=== PATIENT | female | born 1945 | race Caucasian/White ===

== ENCOUNTER 2025-07-20 15:18 | Inpatient (IN) | payer MEDICAID ==
[2025-07-20] VITALS: BP 116/62; PULSE 66; RESP 20; TEMP 36.8; O2SAT 98
[~2025-07-20] VITALS: Ht 154.9 cm; Wt 49.0 kg
[2025-07-20 15:23] VITALS: O2SAT 99
[2025-07-20 16:08] LABS: BASOPHILS % 0.4 % (0.0-2.0); EOSINOPHILS % 1.2 % (0.0-5.0); HEMATOCRIT. 34.1 % (36.0-48.0); HEMOGLOBIN. 11.3 g/dL (12.0-16.0); LYMPHOCYTES % 20.7 % (20.0-50.0); MEAN PLATELET VOLUME 9.1 fl (7.4-10.4); MONOCYTES % 5.7 % (2.0-8.0); NEUTROPHILS % 72.0 % (40.0-76.0); PLATELET 310 x1000/uL (130-400); RED BLOOD CELL COUNT 4.19 mill/uL (4.2-5.4); RED CELL DISTRIBUTION WIDTH 14.1 % (11.6-14.6)
[2025-07-20 16:18] LABS: INR 1.0
[2025-07-20 16:22] LABS: CREATININE 0.7 mg/dL (0.6-1.0)
[2025-07-20 16:23] LABS: TROPONIN I HIGH SENSITIVITY < 4 ng/L (3.0-34); UREA NITROGEN BLOOD 17 mg/dL (9-23)
[2025-07-20 16:24] LABS: ASPARTATE AMINOTRANSFERASE 14 IU/L (<34)
[2025-07-20 16:25] LABS: BILIRUBIN DIRECT 0.2 mg/dL (<=3.0); BILIRUBIN TOTAL 0.6 mg/dL (0.1-1.0); PROTEIN TOTAL 7.0 g/dL (6.0-8.3)
[2025-07-20 20:00] VITALS: BP 157/59; PULSE 78; RESP 19; TEMP 35.7; TEMP 35.7508; O2SAT 99
[2025-07-20] MEDS ORDERED: ACETAMINOPHEN 325MG TABLET PO PRN (21:45)
[2025-07-20] MEDS ORDERED: DEXTROSE 50% WATER 50ML SYRINGE IV PRN (21:45)
[2025-07-20] MEDS ORDERED: ONDANSETRON HCL 4MG/2ML INJ IV PRN (21:45)
[2025-07-20] MEDS ORDERED: LOSA25TA26 PO (21:57)
[2025-07-20] MEDS ORDERED: ASPI-1406 PO (21:57)
[2025-07-20] MEDS ORDERED: ATOR10TA69 PO (21:57)
[2025-07-20] MEDS ORDERED: METF-415 PO (21:57)
[2025-07-20] MEDS: ATORVASTATIN CALCIUM 40MG TABLET PO SCH (23:06)
[2025-07-21] VITALS: BP 116/62; PULSE 66; RESP 20; TEMP 36.8; O2SAT 98
[2025-07-21 04:00] VITALS: BP 130/57; PULSE 70; RESP 20; TEMP 36.5; O2SAT 99
[2025-07-21] MEDS: BLOOD SUGAR DIAGNOSTIC STRIP TEST SCH (07:40)
[2025-07-21 08:04] LABS: BASOPHILS % 0.4 % (0.0-2.0); EOSINOPHILS % 2.6 % (0.0-5.0); HEMATOCRIT. 34.4 % (36.0-48.0); HEMOGLOBIN. 11.3 g/dL (12.0-16.0); LYMPHOCYTES % 43.3 % (20.0-50.0); MEAN PLATELET VOLUME 9.6 fl (7.4-10.4); MONOCYTES % 6.7 % (2.0-8.0); NEUTROPHILS % 47.0 % (40.0-76.0); PLATELET 304 x1000/uL (130-400); RED BLOOD CELL COUNT 4.19 mill/uL (4.2-5.4); RED CELL DISTRIBUTION WIDTH 14.3 % (11.6-14.6)
[2025-07-21 08:09] LABS: CREATININE 0.5 mg/dL (0.6-1.0); TRIGLYCERIDE 82 mg/dL (0-150); UREA NITROGEN BLOOD 11 mg/dL (9-23)
[2025-07-21 08:10] LABS: LDL CHOLESTEROL 59 mg/dL (5-100)
[2025-07-21] MEDS: INSULIN LISPRO 100 UNITS/ML SUBCUT SCH (08:10)
[2025-07-21 08:48] VITALS: BP 141/52; PULSE 72; RESP 20; TEMP 37; O2SAT 99
[2025-07-21] MEDS: ASPIRIN 81MG EC TABLET PO SCH (08:50)
[2025-07-21] MEDS: ENOXAPARIN 40MG/0.4ML SYR SUBCUT SCH (08:50)
[2025-07-21] MEDS: LOSARTAN 25 MG TABLET PO SCH (08:50)
[2025-07-21 12:00] VITALS: BP 134/45; PULSE 72; RESP 20; TEMP 37; O2SAT 99
[2025-07-21 15:21] LABS: CLARITY URINE CLEAR (CLEAR); GLUCOSE URINE 1+ (NEGATIVE); KETONES URINE NEGATIVE (NEGATIVE); LEUKOCYTE ESTERASE URINE TRACE (NEGATIVE); NITRITE URINE NEGATIVE (NEGATIVE); OCCULT BLOOD URINE NEGATIVE (NEGATIVE); PH URINE 6.0 (4.5-8.0); PROTEIN URINE NEGATIVE (NEGATIVE); SPECIFIC GRAVITY URINE 1.014 (1.005-1.030); UROBILINOGEN URINE 1.0 E.U./dL (0.2-1.0)
[2025-07-21 15:55] LABS: COLOR URINE STRAW (YELLOW)
[2025-07-21 16:00] VITALS: BP 131/59; PULSE 75; RESP 18; TEMP 36.4; O2SAT 98
[2025-07-21 16:07] LABS: BACTERIA URINE TRACE; RBC URINE NONE SEEN /hpf (0-2); SQUAMOUS EPITHELIAL CELL URINE FEW /lpf (RARE/1+)
[2025-07-21 20:00] VITALS: BP 135/60; PULSE 82; RESP 20; TEMP 36.2; O2SAT 100
[2025-07-22] VITALS: BP 138/56; PULSE 80; RESP 20; TEMP 36.4; O2SAT 100
[2025-07-22 04:00] VITALS: BP 141/67; PULSE 72; RESP 20; TEMP 36.4; O2SAT 99
[2025-07-22 08:00] VITALS: BP 146/57; PULSE 69; RESP 20; TEMP 37.1; O2SAT 96
[2025-07-22 08:38] VITALS: BP 146/57; PULSE 69; RESP 20; TEMP 37.1; O2SAT 96
[2025-07-22 12:23] VITALS: BP 145/70; PULSE 87; RESP 20; TEMP 36.5
[2025-07-22 15:24] VITALS: BP 145/70; PULSE 87; RESP 20; TEMP 97.7
== END 2025-07-22 16:10 | disposition home or self-care (01) | DRG 48 ==
LOC: ER 15:18 → EDBEDREQ 15:33 → EDBEDREQTM 18:54 → ENRESERV 19:22 → 7WST 20:22
PROVIDERS: ADMIT Internal Medicine; ATTEND Internal Medicine
PROC: 4A00X4Z Measurement of Central Nervous Electrical Activity, External Approach (ICD-10-PCS; principal; 2025-07-22)
DX: G90.89 Other disorders of autonomic nervous system (principal); I69.351 Hemiplegia and hemiparesis following cerebral infarction affecting right dominant side; I10 Essential (primary) hypertension; E11.9 Type 2 diabetes mellitus without complications; G82.20 Paraplegia, unspecified; I69.344 Monoplegia of lower limb following cerebral infarction affecting left non-dominant side; E78.00 Pure hypercholesterolemia, unspecified; Z79.82 Long term (current) use of aspirin; Z79.84 Long term (current) use of oral hypoglycemic drugs
CPT/HCPCS: 36415; 70551; 71045; 80048; 80061; 80076; 81003; 82962; 83036; 83735; 84484; 85025; 93005; 95816; 96372; 97116; 97162; 99285; J1650; J1815